=== PATIENT | female | born 1965 | race African-American/Black ===

== ENCOUNTER 2017-01-13 05:43 | Day surgery (SDC) | payer MEDICARE, OTHER ==
--- NOTE | ~2017-01-13 | EGD ---
EGD REPORT [facility] [address] [place]. [id number] NAME: ASHLEIGH GRIMES : [birth year] STATUS : REG [facility] [place] PAT#: [id number] AGE: 51 ADM/REG DATE : 01/13/17 MR#: [id number] REPORT SERV DATE: 01/13/17 DICTATED BY: MARIE FARMER DATE: 01/13/17 REPORT STATUS : Draft [facility]ANSCRIBED BY: [facility] DATE: 01/13/17 [facility] Patient Name: Ashleigh Grimes Date of : 1965 Attending MD: MARIE FARMER MD Procedure Date No Time: 01/13/2017 Procedure: Upper GI endoscopy Indications: Dysphagia; atypical chest pain; Prilosec 20mg daily. Patient Profile: Informed consent was obtained from the patient by me prior to the procedure. Risks, benefits, and alternatives were discussed including the risk of bleeding, perforation, infection, reaction to medicine, missed lesion, and cardiopulmonary complications. Referring MD: Lala Riley Medicines: Monitored Anesthesia Care Complications: No immediate complications. Procedure: After obtaining informed consent, the endoscope was passed under direct vision. Throughout the procedure, the patient's blood pressure, pulse, and oxygen saturations were monitored continuously. The GIF H190 [id number] was introduced through the mouth, and advanced to the second part of duodenum. The endoscope was withdrawn with careful examination all mucosal surfaces including retroflexion stomach. The upper GI endoscopy was accomplished without difficulty. The patient tolerated the procedure well. Findings: The 2nd part of the duodenum was normal. Biopsies were taken with a cold forceps for histology. Patchy mildly erythematous mucosa was found in the duodenal bulb. Biopsies were taken with a cold forceps for histology. A single medium-sized soft nodule with a localized distribution was found at the ampulla; benign appearing and unchanged previous. Biopsies were taken with a cold forceps for histology. Patchy mildly erythematous mucosa was found in the gastric body and in the gastric antrum. Biopsies were taken with a cold forceps for histology. The cardia and gastric fundus were normal. The Z-line was irregular, two small islands, no nodules. Biopsies were taken with a cold forceps for histology. The examined esophagus was normal. Biopsies were taken with a cold forceps for histology from mid and upper. 45-48F Savary dilation performed over guidewire held in antrum; minimal resistance to dilation; endoscopic visualization afterwards no mucosal breaks. EGD REPORT [address] [address] NAME: ASHLEIGH GRIMES : [birth year] STATUS : REG [facility]#: [id number] AGE: 51 ADM/REG DATE : 01/13/17 MR#: [id number] REPORT SERV DATE: 01/13/17 DICTATED BY: MARIE FARMER DATE: 01/13/17 REPORT STATUS : Draft TRANSCRIBED BY: [email or web address] DATE: 01/13/17 Impression: - Normal 2nd part of the duodenum. Biopsied. - Erythematous duodenopathy. Biopsied. - Nodule found in the duodenum. Biopsied. - Erythematous mucosa in the gastric body and antrum. Biopsied. - Normal cardia and gastric fundus. - Z-line irregular,. Biopsied. - Normal esophagus. Biopsied. Dilated. Recommendation: - Patient has a contact number available for emergencies. The signs and symptoms of potential delayed complications were discussed with the patient. Return to normal activities tomorrow. Written discharge instructions were provided to the patient. - Regular diet. - Continue present medications. - Await pathology results. Procedure Code(s): --- Professional --- 58470, Esophagogastroduodenoscopy, flexible, transoral; with insertion of guide wire followed by passage of dilator(s) through esophagus over guide wire 48301, Esophagogastroduodenoscopy, flexible, transoral; with biopsy, single or multiple Diagnosis Code(s): --- Professional --- K31.89, Other diseases of stomach and duodenum K31.9, Disease of stomach and duodenum, unspecified K22.8, Other specified diseases of esophagus R13.10, Dysphagia, unspecified CPT copyright 2013 [employer]. All rights reserved. The codes documented in this report are preliminary and upon industrial machine system technician review may be revised to meet current compliance requirements. MARIE FARMER MD 01/13/2017 7:31 AM This report has been signed electronically. Number of Addenda: 0 Note Initiated On: 01/13/2017 7:10 AM Scope Withdrawal Time 0 hours 0 minutes 0 seconds EGD REPORT [facility] [address] [address] NAME: ASHLEIGH GRIMES : [birth year] STATUS : REG [facility]#: [id number] AGE: 51 ADM/REG DATE : 01/13/17 MR#: [id number] REPORT SERV DATE: 01/13/17 DICTATED BY: MARIE FARMER DATE: 01/13/17 REPORT STATUS : Draft TRANSCRIBED BY: [employer] DATE: 01/13/17 [address] [address]
--- NOTE | ~2017-01-13 | EGD ---
EGD REPORT [facility] [address] [place]. [address] NAME: ASHLEIGH GRIMES : 65 STATUS : REG [facility] [place] PAT#: [id number] AGE: 51 ADM/REG DATE : 01/13/17 MR#: [id number] REPORT SERV DATE: 01/13/17 DICTATED BY: MARIE FARMER DATE: 01/13/17 REPORT STATUS : Draft [facility]ANSCRIBED [facility]: [facility] DATE: 01/13/17 [facility] Patient Name: Ashleigh Grimes Date of : 1965 Attending MD: MARIE FARMER MD Procedure Date No Time: 01/13/2017 Procedure: Colonoscopy Indications: High risk colon cancer surveillance: Personal history of non-advanced adenoma; last exam 2012. Patient Profile: Informed consent was obtained from the patient by me prior to the procedure. Risks, benefits, and alternatives were discussed including the risk of bleeding, perforation, infection, reaction to medicine, missed lesion, and cardiopulmonary complications. Referring MD: Lala Riley Medicines: Monitored Anesthesia Care Complications: No immediate complications. Procedure: After I obtained informed consent, the scope was passed under direct vision. Throughout the procedure, the patient's blood pressure, pulse, and oxygen saturations were monitored continuously. The PCF [id number] was introduced through the anus and advanced to the cecum, identified by appendiceal orifice and ileocecal valve. The colonoscope was slowly withdrawn with careful examination all mucosal surfaces including specific attention around flexures and tip deflection behind folds; retroflexion performed in rectum. The colonoscopy was performed without difficulty. The patient tolerated the procedure well. The quality of the bowel preparation was adequate. The ileocecal valve, appendiceal orifice and rectum were photographed. Findings: The colon (entire examined portion) appeared normal. Internal hemorrhoids were found, and they were mild. Impression: - The entire examined colon is normal. - Internal hemorrhoids. Recommendation: - Patient has a contact number available for emergencies. The signs and symptoms of potential delayed complications were discussed with the patient. Return to normal activities tomorrow. Written discharge instructions were provided to the patient. - Regular diet. EGD REPORT [address] [address] NAME: ASHLEIGH GRIMES : [birth year] STATUS : REG [facility] [place] PAT#: [id number] AGE: 51 ADM/REG DATE : 01/13/17 MR#: [id number] REPORT SERV DATE: 01/13/17 DICTATED BY: MARIE FARMER. DATE: 01/13/17 REPORT STATUS : Draft TRANSCRIBED BY: [employer] DATE: 01/13/17 - Continue present medications. - Repeat colonoscopy in 5 years for surveillance. Procedure Code(s): --- Professional --- 92412, Colonoscopy, flexible, proximal to splenic flexure; diagnostic, with or without collection of specimen(s) by brushing or washing, with or without colon decompression (separate procedure) Diagnosis Code(s): --- Professional --- K64.8, Other hemorrhoids Z86.010, Personal history of colonic polyps CPT copyright 2013 [employer]. All rights reserved. The codes documented in this report are preliminary and upon sales and marketing associate review may be revised to meet current compliance requirements. MARIE FARMER MD 01/13/2017 7:46 AM This report has been signed electronically. Number of Addenda: 0 Note Initiated On: 01/13/2017 7:09 AM Scope Withdrawal Time 0 hours 6 minutes 48 seconds [id number] [place] [address]
[~2017-01-13 05:43] MED LIST: AMARYL4 PO; APRES10B PO; APRES50 PO; ASAB PO; CARASPUDL PO; CATAPRES3 TOP; COREG12 PO; COREG25 PO; GLUCOPHAGE1000 MG PO; GLUCOTROL5 PO; GLUCOV2.5 PO; GLUCPH8 PO; IRON325 MG PO; K-TABS10 MEQ PO; L20 PO; LEVEMFLXPN SC; LEVEMIR SC; LIPITOR40 PO; LIPITOR80 MG PO; LOP100 PO; LOP50 PO; LORTAB 5 PO; LORTAB PO; MAXITOINT OPH; NEUR100 PO; NEURONTIN PO; NORV10 PO; NORV5 PO; NOVOLOG SC; NOVOPEN SC; PRIN20 PO; PRINZIDE1 TA1 PO; PROCRIT10 IV; SODBICAR10 PO; TAZTIA XT PO; TOPXL100 PO; VERAPAMIL PO; VERELAN240 MG PO; VIT D; VITAMIN D2000 UNIT PO; VITAMIN D31000 UNIT PO; VIVELLE-DOT0.0375 MG TOP; ZESTORETIC PO; ZOCOR40 PO; [UNRECOGNIZED DRUG - OTHER]; [UNRECOGNIZED DRUG - OTHER] IO; [UNRECOGNIZED DRUG - OTHER] OPH; [UNRECOGNIZED DRUG - OTHER] PO
[2017-01-13 06:51] LABS: BUN (BLOOD UREA NITROGEN) 17 MG/DL (6-23); CALCIUM, SERUM 9.3 MG/DL (8.5-10.4); CO2 (CARBON DIOXIDE) 26 MMOL/L (24-34); CREATININE 5.96 MG/DL (0.55-1.02); GFR AFRICAN AMERICAN 9 ML/MIN (>=60); GFR NON AFRICAN AMERICAN 8 ML/MIN (>=60); POTASSIUM, SERUM 3.9 MMOL/L (3.5-5.3)
[2017-01-13 06:52] LABS: CHLORIDE, SERUM 95 MMOL/L (96-112); GLUCOSE, SERUM 146 MG/DL (60-99); SODIUM, SERUM 130 MMOL/L (135-148)
[2017-04-27] MEDS ORDERED: TRESIBA FL100 UNIT/1 SC (10:26)
[2017-04-27] MEDS ORDERED: ASAB PO (10:27)
[2017-04-27] MEDS ORDERED: NOVOLOG SC (10:28)
[2017-04-27] MEDS ORDERED: AMB10 PO (10:29)
[2017-04-27] MEDS ORDERED: SELENIUM SULFIDE LOT TOP (10:30)
[2017-04-27] MEDS ORDERED: NORV5 PO (10:30)
[2017-04-27] MEDS ORDERED: LIPITOR80 MG PO (10:30)
[2017-04-27] MEDS ORDERED: KLOR-CON 1010 MEQ PO (10:31)
[2017-04-27] MEDS ORDERED: NEUR100 PO (10:31)
[2017-04-27] MEDS ORDERED: COREG12 PO (10:31)
[2017-04-27] MEDS ORDERED: GLUCXL5 PO (10:32)
[2017-04-27] MEDS ORDERED: VITAMIN D31000 UNIT PO (10:33)
[2017-04-27] MEDS ORDERED: [UNRECOGNIZED DRUG - OTHER] IO (10:34)
[2017-04-29] MEDS ORDERED: PLAVIX PO (11:43)
== END 2017-01-13 23:59 | disposition home or self-care (01) ==
LOC: DMU 05:43
PROVIDERS: Anesthesiology; Internal Medicine Gastroenterology
PROC: 0DB28ZX Excision of Middle Esophagus, Via Natural or Artificial Opening Endoscopic, Diagnostic (ICD-10-PCS; 2017-01-13)
PROC: 0DB68ZX Excision of Stomach, Via Natural or Artificial Opening Endoscopic, Diagnostic (ICD-10-PCS; 2017-01-13)
PROC: 0D758ZZ Dilation of Esophagus, Via Natural or Artificial Opening Endoscopic (ICD-10-PCS; 2017-01-13)
PROC: 0DJD8ZZ Inspection of Lower Intestinal Tract, Via Natural or Artificial Opening Endoscopic (ICD-10-PCS; principal; 2017-01-13 07:00)
PROC: 0DB98ZX Excision of Duodenum, Via Natural or Artificial Opening Endoscopic, Diagnostic (ICD-10-PCS; 2017-01-13 07:00)
PROC: 0DB18ZX Excision of Upper Esophagus, Via Natural or Artificial Opening Endoscopic, Diagnostic (ICD-10-PCS; 2017-01-13 07:00)
DX: K20.9 Esophagitis, unspecified (principal); K29.80 Duodenitis without bleeding; K29.50 Unspecified chronic gastritis without bleeding; E11.22 Type 2 diabetes mellitus with diabetic chronic kidney disease; I12.0 Hypertensive chronic kidney disease with stage 5 chronic kidney disease or end stage renal disease; N18.6 End stage renal disease; D64.9 Anemia, unspecified; Z86.73 Personal history of transient ischemic attack (TIA), and cerebral infarction without residual deficits; Z88.8 Allergy status to other drugs, medicaments and biological substances; Z79.82 Long term (current) use of aspirin; Z79.4 Long term (current) use of insulin; Z79.899 Other long term (current) drug therapy; Z90.49 Acquired absence of other specified parts of digestive tract; Z90.710 Acquired absence of both cervix and uterus; Z98.51 Tubal ligation status; Z98.890 Other specified postprocedural states; K64.8 Other hemorrhoids; Z86.010 Personal history of colon polyps
CPT/HCPCS: 80048; 88305; 88342